=== PATIENT | male | born 2000 | race Caucasian/White ===

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

== ENCOUNTER 2023-08-01 14:02 | Emergency (ER) | payer SELFPAY ==
[~2023-08-01] VITALS: Ht 180.3 cm; Wt 106.6 kg
[2023-08-01] MEDS ORDERED: Tetracaine Hydrochloride 0.5% 4 ML BOT OPH ONE (14:40)
[2023-08-01] MEDS ORDERED: FLUORESCEIN SODIUM 1 MG STRIP OPH ONE (14:40)
[2023-08-01] MEDS ORDERED: CIPROFLOXACIN H10 ML OPH (14:51)
== END 2023-08-01 15:40 | disposition home or self-care (01) ==
LOC: ED 14:02
DX: S05.01XA Injury of conjunctiva and corneal abrasion without foreign body, right eye, initial encounter (principal); Z98.890 Other specified postprocedural states; X58.XXXA Exposure to other specified factors, initial encounter; Y93.89 Activity, other specified; Y92.89 Other specified places as the place of occurrence of the external cause; Y99.8 Other external cause status

== ENCOUNTER 2024-02-02 18:58 | Emergency (ER) | payer SELFPAY ==
[~2024-02-02] VITALS: Ht 180.3 cm; Wt 102.1 kg
[~2024-02-02 18:58] MED LIST changes: +CIPROFLOXACIN H10 ML OPH
[2024-02-02] MEDS ORDERED: Cyclobenzaprine Hydrochlorid 10 MG TAB PO ONE (19:35)
[2024-02-02] MEDS ORDERED: Ketorolac Tromethamine 60 MG/2 ML VIAL IM ONE (19:35)
[2024-02-02] MEDS ORDERED: Dexamethasone Sodium Phospha 20 MG/5 ML VIAL IM ONE (19:35)
[2024-02-02] MEDS ORDERED: LIDOCAINE PAIN1 EACH T (20:44)
[2024-02-02] MEDS ORDERED: MELOXICAM15 MG PO (20:44)
[2024-02-02] MEDS ORDERED: CYCLOBENZAPRINE5 M3 PO (20:44)
[2024-02-02] MEDS ORDERED: MEDROL DOSEPAK4 MG PO (20:44)
== END 2024-02-02 20:49 | disposition home or self-care (01) ==
LOC: ED 18:58
DX: M62.830 Muscle spasm of back (principal); Z98.890 Other specified postprocedural states

== ENCOUNTER 2024-03-30 10:01 | Emergency (ER) | payer SELFPAY ==
[~2024-03-30] VITALS: Ht 180.3 cm; Wt 104.3 kg
[~2024-03-30 10:01] MED LIST changes: +CYCLOBENZAPRINE5 M3 PO; +LIDOCAINE PAIN1 EACH T; +MEDROL DOSEPAK4 MG PO; +MELOXICAM15 MG PO
[2024-03-30] MEDS ORDERED: Ketorolac Tromethamine 15 MG/ML VIAL IV ONE (11:00)
[2024-03-30] MEDS ORDERED: SODIUM CHLORIDE 0.9% 1,000 ML IV ONE (11:00)
[2024-03-30 11:11] LABS: BASO % 0.4 % (0.0-1.0); EOS % 0.9 % (1.0-4.0); MEAN CELL VOLUME 86.3 fl (80.0-94.0); MEAN CORPUSCULAR HGB 29.9 pg (27.0-31.0); MEAN CORPUSCULAR HGB CONC 34.6 g/dl (33.0-37.0); MEAN PLATELET VOLUME 8.9 fl (9.6-12.3); MONO # 0.4 10*3/uL (0.1-1.0); MONO % 7.9 % (3.0-9.0); NEUT # 2.4 10*3/uL (2.3-7.9); NEUT % 52.7 % (47.0-73.0); PLATELET COUNT AUTOMATED 217 10*3/uL (130-400); RED BLOOD COUNT 5.56 10*6/uL (4.50-5.90); RED CELL DISTRI WIDTH 11.4 % (0-14.5); WHITE BLOOD COUNT 4.5 10*3/uL (4.8-10.8)
[2024-03-30 11:31] LABS: BUN 16 mg/dl (9-23); CHLORIDE 103 mmol/L (98-107); POTASSIUM 4.8 mmol/L (3.4-5.1)
== END 2024-03-30 12:12 | disposition home or self-care (01) ==
LOC: ED 10:01
PROVIDERS: Emergency Medicine
DX: G43.909 Migraine, unspecified, not intractable, without status migrainosus (principal); Z20.822 Contact with and (suspected) exposure to COVID-19; R11.2 Nausea with vomiting, unspecified; Z98.890 Other specified postprocedural states

== ENCOUNTER 2024-05-07 08:36 | Emergency (ER) | payer SELFPAY ==
[~2024-05-07] VITALS: Ht 60.9 cm; Wt 102.1 kg
[2024-05-07] MEDS ORDERED: Meclizine Hydrochloride 25 MG TAB PO ONE (09:15)
[2024-05-07] MEDS ORDERED: SODIUM CHLORIDE 0.9% 1,000 ML IV ONE (09:15)
[2024-05-07 09:31] LABS: BASO % 0.4 % (0.0-1.0); EOS % 0.7 % (1.0-4.0); HEMATOCRIT 45.6 % (42.0-52.0); MEAN CELL VOLUME 87.2 fl (80.0-94.0); MEAN CORPUSCULAR HGB 30.6 pg (27.0-31.0); MEAN CORPUSCULAR HGB CONC 35.1 g/dl (33.0-37.0); MEAN PLATELET VOLUME 9.3 fl (9.6-12.3); MONO # 0.3 10*3/uL (0.1-1.0); MONO % 7.2 % (3.0-9.0); NEUT # 2.6 10*3/uL (2.3-7.9); NEUT % 56.1 % (47.0-73.0); PLATELET COUNT AUTOMATED 226 10*3/uL (130-400); RED BLOOD COUNT 5.23 10*6/uL (4.50-5.90); RED CELL DISTRI WIDTH 11.7 % (0-14.5); WHITE BLOOD COUNT 4.6 10*3/uL (4.8-10.8)
[2024-05-07 09:56] LABS: BUN 19 mg/dl (9-23); CHLORIDE 103 mmol/L (98-107); POTASSIUM 4.4 mmol/L (3.4-5.1)
[2024-05-07] MEDS ORDERED: ANTIVERT25 M2 PO (10:10)
== END 2024-05-07 10:14 | disposition home or self-care (01) ==
LOC: ED 08:36
PROVIDERS: Emergency Medicine
DX: H81.10 Benign paroxysmal vertigo, unspecified ear (principal); F17.200 Nicotine dependence, unspecified, uncomplicated

== ENCOUNTER 2024-06-23 13:24 | Emergency (ER) | payer SELFPAY ==
[~2024-06-23] VITALS: Ht 180.3 cm; Wt 104.3 kg
[~2024-06-23 13:24] MED LIST changes: +ANTIVERT25 M2 PO
[2024-06-23] MEDS ORDERED: FAMOTIDINE 50 ML IV ONE (13:45)
[2024-06-23] MEDS ORDERED: SODIUM CHLORIDE 0.9% 1,000 ML IV ONE (13:45)
[2024-06-23] MEDS ORDERED: Loperamide Hydrochloride 2 MG CAP PO ONE (13:45)
[2024-06-23] MEDS ORDERED: Ondansetron Hydrochloride 4 MG/2 ML VIAL IV ONE (13:45)
[2024-06-23] MEDS ORDERED: PEPCID40 MG PO (13:46)
[2024-06-23] MEDS ORDERED: Ondansetron4 MG PO (13:46)
[2024-06-23 13:58] LABS: BASO % 0.4 % (0.0-1.0); EOS % 0.4 % (1.0-4.0); HEMATOCRIT 44.3 % (42.0-52.0); MEAN CELL VOLUME 87.2 fl (80.0-94.0); MEAN CORPUSCULAR HGB 30.1 pg (27.0-31.0); MEAN CORPUSCULAR HGB CONC 34.5 g/dl (33.0-37.0); MEAN PLATELET VOLUME 9.3 fl (9.6-12.3); MONO # 0.3 10*3/uL (0.1-1.0); MONO % 6.3 % (3.0-9.0); NEUT # 3.1 10*3/uL (2.3-7.9); NEUT % 59.5 % (47.0-73.0); PLATELET COUNT AUTOMATED 227 10*3/uL (130-400); RED BLOOD COUNT 5.08 10*6/uL (4.50-5.90); RED CELL DISTRI WIDTH 11.5 % (0-14.5); WHITE BLOOD COUNT 5.3 10*3/uL (4.8-10.8)
[2024-06-23 14:23] LABS: ALKALINE PHOSPHATASE 61 U/L (46-116); BUN 13 mg/dl (9-23); CHLORIDE 103 mmol/L (98-107); LIPASE 27 U/L (12-53); POTASSIUM 3.9 mmol/L (3.4-5.1); SGPT/ALT 31 U/L (5-49); TOTAL PROTEIN 7.5 gm/dL (6.0-8.0)
[2024-06-23 15:06] LABS: BILIRUBIN Negative (Negative); BLOOD Negative (Negative); CLARITY Clear (Clear); COLOR Dark Yellow (Yellow); GLUCOSE Negative (Negative); KETONE Trace (Negative); LEUKO ESTERASE Trace (Negative); NITRITE Negative (Negative); SPECIFIC GRAVITY >= 1.030 (1.001-1.030)
[2024-06-23 15:24] LABS: BACTERIA 1+; MUCOUS 3+
== END 2024-06-23 15:06 | disposition home or self-care (01) ==
LOC: ED 13:24
PROVIDERS: Emergency Medicine
DX: K52.9 Noninfective gastroenteritis and colitis, unspecified (principal); Z79.899 Other long term (current) drug therapy; Z98.890 Other specified postprocedural states

== ENCOUNTER 2024-09-01 18:35 | Emergency (ER) | payer SELFPAY ==
[~2024-09-01 18:35] MED LIST changes: +Ondansetron4 MG PO; +PEPCID40 MG PO
[2024-09-01] MEDS ORDERED: METHOCARBAMOL500 M1 PO (18:57)
== END 2024-09-01 19:08 | disposition home or self-care (01) ==
LOC: ED 18:35
DX: S09.93XA Unspecified injury of face, initial encounter (principal); W22.8XXA Striking against or struck by other objects, initial encounter; Y93.89 Activity, other specified; Y92.89 Other specified places as the place of occurrence of the external cause; Y99.8 Other external cause status

== ENCOUNTER 2024-10-13 18:36 | Inpatient (IN) | payer SELFPAY ==
[~2024-10-13] VITALS: Ht 180.3 cm; Wt 112.6 kg
[~2024-10-13 18:36] MED LIST changes: +METHOCARBAMOL500 M1 PO
[2024-10-13 18:50] VITALS: BP 147/100
[2024-10-13] MEDS ORDERED: SODIUM CHLORIDE 0.9% 1,000 ML IV ONE ×2 (19:10→20:00)
[2024-10-13 19:22] LABS: BASO # 0.0 10*3/uL (0.0-0.1); BASO % 0.3 % (0.0-1.0); EOS # 0.0 10*3/uL (0.0-0.4); EOS % 0.3 % (1.0-4.0); MEAN CELL VOLUME 85.1 fl (80.0-94.0); MEAN CORPUSCULAR HGB 30.0 pg (27.0-31.0); MEAN PLATELET VOLUME 9.4 fl (9.6-12.3); MONO # 0.7 10*3/uL (0.1-1.0); MONO % 7.2 % (3.0-9.0); NEUT # 6.9 10*3/uL (2.3-7.9); NEUT % 69.2 % (47.0-73.0); NUCLEATED RED BLOOD CELL 0.0 % (0.0-0.0); NUCLEATED RED BLOOD CELL 0.0 10*3/uL (0.0-0.0); PLATELET COUNT AUTOMATED 316 10*3/uL (130-400); RED CELL DISTRI WIDTH 11.8 % (0-14.5)
[2024-10-13 19:38] LABS: BILIRUBIN 2+ (Negative); BLOOD Negative (Negative); CLARITY Cloudy (Clear); COLOR Dark Yellow (Yellow); KETONE Trace (Negative); LEUKO ESTERASE Negative (Negative); NITRITE Negative (Negative); PH 5.0 (4.5-8.0); SPECIFIC GRAVITY 1.025 (1.001-1.030); UROBILINOGEN 1.0 E.U./dl (0.0-1.0)
[2024-10-13 19:42] LABS: BUN 47.0 mg/dl (9-23); CPK 934.0 U/L (34-171)
[2024-10-13 19:56] LABS: CALCIUM OXALATE CRYSTALS 2+
[2024-10-13 20:13] VITALS: BP 130/70
[2024-10-13] MEDS ORDERED: BISACODYL 10 MG SUPP R PRN (20:45)
[2024-10-13] MEDS ORDERED: Ondansetron Hydrochloride 4 MG/2 ML VIAL IV PRN (20:45)
[2024-10-13] MEDS ORDERED: BISACODYL 5 MG TAB PO PRN (20:45)
[2024-10-13] MEDS ORDERED: ACETAMINOPHEN 325 MG TAB PO PRN (20:45)
[2024-10-13] MEDS ORDERED: SODIUM CHLORIDE 0.9% 1,000 ML IV SCH (20:55)
[2024-10-13 21:16] VITALS: BP 144/79
[2024-10-13 21:21] LABS: URINE AMPHETAMINES Negative (1000ng/ml); URINE BARBITURATES Negative (200ng/ml); URINE BENZODIAZEPINES Negative (200ng/ml); URINE CANNABINOIDS (THC) Positive (50ng/ml); URINE COCAINE Negative (300ng/ml); URINE METHADONE Negative (300ng/ml); URINE OPIATES Negative (300ng/ml); URINE PHENCYCLIDINE Negative (25ng/ml)
[2024-10-14] VITALS: BP 121/57
[2024-10-14 06:34] LABS: BASO # 0.0 10*3/uL (0.0-0.1); BASO % 0.5 % (0.0-1.0); EOS # 0.0 10*3/uL (0.0-0.4); EOS % 0.6 % (1.0-4.0); MEAN CELL VOLUME 87.7 fl (80.0-94.0); MEAN CORPUSCULAR HGB 30.2 pg (27.0-31.0); MEAN PLATELET VOLUME 9.5 fl (9.6-12.3); MONO # 0.5 10*3/uL (0.1-1.0); MONO % 8.4 % (3.0-9.0); NEUT # 2.9 10*3/uL (2.3-7.9); NEUT % 45.3 % (47.0-73.0); NUCLEATED RED BLOOD CELL 0.0 % (0.0-0.0); NUCLEATED RED BLOOD CELL 0.0 10*3/uL (0.0-0.0); PLATELET COUNT AUTOMATED 249 10*3/uL (130-400); RED CELL DISTRI WIDTH 12.3 % (0-14.5)
[2024-10-14 08:00] VITALS: BP 135/81
[2024-10-14 08:10] LABS: FREE T4 1.39 ng/dl (0.89-1.76); LDL CHOLESTEROL 178 mg/dL (9-159)
[2024-10-14 08:12] LABS: VITAMIN D, 25-HYDROXY 32.4 ng/mL (30-100)
[2024-10-14 08:36] LABS: BUN 35 mg/dl (9-23); CPK 562 U/L (34-171)
[2024-10-14] MEDS ORDERED: SODIUM CHLORIDE 0.9% 1,000 ML IV ONE (10:00)
[2024-10-14 12:00] VITALS: BP 129/59
[2024-10-14 16:00] VITALS: BP 129/65
[2024-10-14 20:00] VITALS: BP 134/62
[2024-10-15] VITALS: BP 126/73
[2024-10-15 06:07] LABS: BASO # 0.0 10*3/uL (0.0-0.1); BASO % 0.5 % (0.0-1.0); EOS # 0.1 10*3/uL (0.0-0.4); EOS % 0.9 % (1.0-4.0); MEAN CELL VOLUME 87.8 fl (80.0-94.0); MEAN CORPUSCULAR HGB 30.3 pg (27.0-31.0); MEAN PLATELET VOLUME 9.4 fl (9.6-12.3); MONO # 0.4 10*3/uL (0.1-1.0); MONO % 7.1 % (3.0-9.0); NEUT # 2.4 10*3/uL (2.3-7.9); NEUT % 43.7 % (47.0-73.0); NUCLEATED RED BLOOD CELL 0.0 % (0.0-0.0); NUCLEATED RED BLOOD CELL 0.0 10*3/uL (0.0-0.0); PLATELET COUNT AUTOMATED 188 10*3/uL (130-400); RED CELL DISTRI WIDTH 11.9 % (0-14.5)
[2024-10-15 07:33] LABS: BUN 23 mg/dl (9-23)
[2024-10-15 08:00] VITALS: BP 122/66
== END 2024-10-15 11:45 | disposition home or self-care (01) | DRG 557 ==
LOC: ED 18:36 → 5E 20:06 → EDHOLD 20:06 → 5E 21:11
PROVIDERS: Nurse Practitioner Family; Student in an Organized Health Care Education/Training Program; ADMIT Internal Medicine; ATTEND Internal Medicine
DX: M62.82 Rhabdomyolysis (principal); N17.0 Acute kidney failure with tubular necrosis; E87.1 Hypo-osmolality and hyponatremia; R00.0 Tachycardia, unspecified; E87.8 Other disorders of electrolyte and fluid balance, not elsewhere classified; R73.9 Hyperglycemia, unspecified; R82.2 Biliuria; F17.210 Nicotine dependence, cigarettes, uncomplicated; G89.29 Other chronic pain; M54.6 Pain in thoracic spine; H81.13 Benign paroxysmal vertigo, bilateral; E86.0 Dehydration; Z79.899 Other long term (current) drug therapy; Z79.01 Long term (current) use of anticoagulants; Z71.6 Tobacco abuse counseling; Z79.2 Long term (current) use of antibiotics; Z83.3 Family history of diabetes mellitus; Z82.49 Family history of ischemic heart disease and other diseases of the circulatory system

== ENCOUNTER 2025-01-25 10:36 | Emergency (ER) | payer SELFPAY ==
[~2025-01-25] VITALS: Ht 180.3 cm; Wt 106.6 kg
[2025-01-25] MEDS ORDERED: Ondansetron Hydrochloride 4 MG TAB PO ONE (11:05)
[2025-01-25 11:19] LABS: BASO # 0.0 10*3/uL (0.0-0.1); BASO % 0.4 % (0.0-1.0); EOS # 0.0 10*3/uL (0.0-0.4); EOS % 0.5 % (1.0-4.0); MEAN CELL VOLUME 87.7 fl (80.0-94.0); MEAN CORPUSCULAR HGB 29.9 pg (27.0-31.0); MEAN PLATELET VOLUME 9.0 fl (9.6-12.3); MONO # 0.3 10*3/uL (0.1-1.0); MONO % 5.9 % (3.0-9.0); NEUT # 3.7 10*3/uL (2.3-7.9); NEUT % 65.8 % (47.0-73.0); NUCLEATED RED BLOOD CELL 0.0 % (0.0-0.0); NUCLEATED RED BLOOD CELL 0.0 10*3/uL (0.0-0.0); PLATELET COUNT AUTOMATED 235 10*3/uL (130-400); RED CELL DISTRI WIDTH 11.8 % (0-14.5)
[2025-01-25 11:41] LABS: BUN 18 mg/dl (9-23); SGPT/ALT 42 U/L (5-49)
[2025-01-25] MEDS ORDERED: Ondansetron4 MG PO (11:49)
[2025-01-25] MEDS ORDERED: ACETAMINOPHEN 500 MG TAB PO ONE (11:55)
== END 2025-01-25 12:03 | disposition home or self-care (01) ==
LOC: ED 10:36
PROVIDERS: Student in an Organized Health Care Education/Training Program
DX: K22.6 Gastro-esophageal laceration-hemorrhage syndrome (principal); R11.2 Nausea with vomiting, unspecified; F90.9 Attention-deficit hyperactivity disorder, unspecified type; F12.90 Cannabis use, unspecified, uncomplicated; Z90.89 Acquired absence of other organs